=== PATIENT | male | born 1990 | race Caucasian/White ===

== ENCOUNTER 2023-03-16 15:12 | Emergency (ER) | payer OTHER ==
[~2023-03-16] VITALS: Ht 188 cm; Wt 136.1 kg
[~2023-03-16 15:12] MED LIST: ALBU90OI INH; AMOCLA600S PO; AMOX500; AMOX500 PO; AZIT250 PO; CALZINTL TP; CEPH500 PO; CODACE30 PO; CRUTCH3 USE; CRUTCH4 USE; DIPH50 PO; FAMO20 PO; HYDACE5 PO; IBUP400; IBUP800; IBUP800 PO; LORA10ER PO; OXYACE5T PO; PRED20 PO; RXCODACET PO; RXHYDACE PO
[2023-03-16 15:39] VITALS: BP 137/77
== END 2023-03-16 16:18 | disposition home or self-care (01) ==
LOC: ER 15:12
DX: U07.1 COVID-19 (principal)
CPT/HCPCS: 71046; 93005; 93010; 99285-25; A9270